=== PATIENT | male | born 2000 | race Caucasian/White ===

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

== ENCOUNTER → 2020-01-06 | Outpatient (CLI) | payer SELFPAY | LOC: LAB 16:02 | DX: R05 Cough (principal); R11.0 Nausea; R06.02 Shortness of breath; R11.10 Vomiting, unspecified ==

== ENCOUNTER → 2020-06-08 | Outpatient (CLI) | payer SELFPAY | LOC: RAD 19:03 | DX: M25.511 Pain in right shoulder (principal) ==

== ENCOUNTER 2021-02-24 07:11 | Emergency (ER) | payer SELFPAY ==
[2021-02-24 07:26] VITALS: BP 152/78
[2021-02-24] MEDS ORDERED: MORGIDOX 1X100100 MG PO (08:12)
[2021-02-24] MEDS ORDERED: CLEOCIN HCL150 M1 PO (08:23)
== END 2021-02-24 08:44 | disposition home or self-care (01) ==
LOC: ED 07:11
DX: J02.0 Streptococcal pharyngitis (principal); F17.210 Nicotine dependence, cigarettes, uncomplicated

== ENCOUNTER → 2023-06-23 | Outpatient (CLI) | payer SELFPAY ==
[~2023-06-23] MED LIST changes: +CLEOCIN HCL150 M1 PO; +MORGIDOX 1X100100 MG PO
== END ==
LOC: RAD 16:38
DX: M25.572 Pain in left ankle and joints of left foot (principal)